=== PATIENT | male | born 1950 | race Hispanic/Latino ===

== ENCOUNTER 2024-11-07 20:45 | Emergency (ER) | payer MEDICARE ==
[2024-11-07] MEDS ORDERED: NA CHLORIDE 0.9% 1,000 ML ONE (21:58)
[2024-11-07 22:15] LABS: Absolute Lymphocytes (CBC) 1.1 K/uL (0.7-4.9); Hematocrit 41.0 % (39.6-49.0); Hemoglobin 14.0 g/dL (13.6-17.9); MCH 33.2 pg (27.0-35.0); MCHC 34.2 g/dL (32.0-36.0); MCV 97.2 fL (80-100); MPV 10.2 fL (7.6-11.3); Nucleated RBC Absolute Count 0.0 (0-0); Nucleated Red Blood Cells % 0.1 % (0-0); RBC Red Blood Cell Count 4.21 M/uL (4.33-5.43); White Blood Count 4.40 thou/uL (4.3-10.9)
--- NOTE | 2024-11-07 22:27 | RAD REPORT ---
EXAMINATION: ONE VIEW CHEST XR CLINICAL INDICATION: Male, 74 years old.,COUGH TECHNIQUE: Frontal chest projection is submitted. Examination is limited by patient positioning and t echnique. COMPARISON: No prior exam. FINDINGS: The lungs are well inflated and clear. No pneumothorax or sizable effusion. The heart is normal in s ize. Mediastinal contours are unremarkable. IMPRESSION: No acute intrathoracic abnormalities.
[2024-11-07 22:28] LABS: ALT/SGPT 102.0 U/L (16-61); AST/SGOT 50.0 U/L (15-37); Albumin 4.0 g/dL (3.4-5.0); Albumin/Globulin Ratio 1.1 (1.1-1.8); Alkaline Phosphatase 114.0 U/L (45-117); Anion Gap 10.1 mEq/L (5.0-15.0); BUN Blood Urea Nitrogen 16.0 mg/dL (7-18); Bilirubin Indirect, Calculated 0.4 mg/dL (0.2-0.8); Globulin 3.6 g/dL (2.3-3.5); Lipase 107.0 U/L (13-75); Potassium 4.1 mEq/L (3.5-5.1)
[2024-11-07 22:29] LABS: Glucose Level 557.0 mg/dL (74-106); Magnesium 2.4 mg/dL (1.6-2.4)
[2024-11-07] MEDS ORDERED: INSULIN REGULAR (HUMAN) 100 UNIT/ML ONE (23:46)
[2024-11-07 23:55] LABS: Urine Microscopic Reflex YN NO UMIC
--- NOTE | 2024-11-08 00:48 | ER ---
Nurse's Notes [facility] Name: Grant Costello Age: 74 yrs Sex: Male : 1950 Arrival Date: 11/07/2024 Time: 20:45 Bed 6 Private MD: Diagnosis: Hyperglycemia, unspecified Presentation: 11/07 21:16 Chief complaint: Patient states: BGS 585 PRIOR TO ARRIVAL TO ER. REPORTS INCREASE IN dd2 THIRST AND URINARY FREQUENCY FOR A COUPLE WEEKS. Coronavirus screen: At this time, the client does not indicate any symptoms associated with coronavirus-19. Ebola Screen: No symptoms or risks identified at this time. Initial Sepsis Screen: Does the patient meet any 2 criteria? No. Patient's initial sepsis screen is negative. Does the patient have a suspected source of infection? No. Patient's initial sepsis screen is negative. Risk Assessment: Do you want to hurt yourself or someone else? Patient reports no desire to harm self or others. Onset of symptoms is unknown. 21:16 Method Of Arrival: Ambulatory dd2 21:16 Acuity: MAXX 3 dd2 Triage Assessment: 21:19 General: Appears in no apparent distress. Behavior is appropriate for age, agitated. dd2 Pain: Denies pain. Historical: - Allergies: 21:19 No Known Allergies; dd2 - PMHx: 21:19 Diabetes mellitus; dd2 - PSHx: 21:19 None; dd2 - Social history:: Smoking status: Patient denies any tobacco usage or history of. Screenin:[address] [facility] ED Fall Risk Assessment (Adult) History of falling in the last 3 months, jb4 including since admission No falls in past 3 months (0 pts) Confusion or Disorientation No (0 pts) Intoxicated or Sedated Yes (3 pts) Impaired Gait No (0 pts) Mobility Assist Device Used No (0 pt) Altered Elimination No (0 pt) Score/Fall Risk Level 0 - 2 = Low Risk Oriented to surroundings, Maintained a safe environment. Abuse screen: Denies threats or abuse. Nutritional screening: No deficits noted. Tuberculosis screening: No symptoms or risk factors identified. Assessment: 22:20 General: Appears in no apparent distress. comfortable, Behavior is calm, cooperative, jb4 appropriate for age. Pain: Denies pain. Neuro: Level of Consciousness is awake, alert, obeys commands, Oriented to person, place, time, situation. Cardiovascular: Patient's skin is warm and dry. Respiratory: Airway is patent Respiratory effort is even, unlabored, Respiratory pattern is regular, symmetrical. : Reports urinary frequency, since the past few days. Derm: Skin is intact, Skin is pink, warm \T\ dry. Musculoskeletal: Circulation, motion, and sensation intact. Range of motion: intact in all extremities. 23:30 Reassessment: Patient appears in no apparent distress at this time. Patient and/or jb4 family updated on plan of care and expected duration. Pain level reassessed. Patient is alert, oriented x 3, equal unlabored respirations, skin warm/dry/pink. 11/08 00:30 Reassessment: Patient appears in no apparent distress at this time. Patient and/or jb4 family updated on plan of care and expected duration. Pain level reassessed. Patient is alert, oriented x 3, equal unlabored respirations, skin warm/dry/pink. 01:56 Reassessment: Patient appears in no apparent distress at this time. Patient and/or jb4 family updated on plan of care and expected duration. Pain level reassessed. Patient is alert, oriented x 3, equal unlabored respirations, skin warm/dry/pink. Vital Signs: 11/07 21:16 BP 150 / 98; Pulse 68; Resp 16; Temp 97.5; Pulse Ox 97% ; Pain 0/10; dd2 22:21 BP 132 / 65; Pulse 63; Resp 19; Pulse Ox 96% ; jb4 11/08 00:13 BP 136 / 67; Pulse 63; Resp 16; Pulse Ox 93% on R/A; jb4 01:30 BP 143 / 72; Pulse 65; Resp 16; Pulse Ox 95% on R/A; jb4 11/07 21:16 Pain Scale: Adult dd2 ED Course: 11/07 20:48 Patient arrived in ED. mr 21:16 Nikki Craven FNP-C is PHCP. kb 21:16 Rafael Coleman DO is Attending Physician. kb 21:19 Triage completed. dd2 21:19 Arm band placed on right wrist. dd2 21:41 Chest Single View XRAY In Process Unspecified. EDMS 21:52 Isael Blair, ESTUARDO is Primary Nurse. jb4 21:56 EKG done, by nanotechnology technician. reviewed by Nikki LATHAM. ts3 21:56 Initial lab(s) drawn, by dock or pier laborer, sent to lab. Inserted saline lock: 20 gauge in left ts3 antecubital area, using aseptic technique. Blood collected. Flushed with 10 mL NS. 22:20 Patient has correct armband on for positive identification. Bed in low position. Call jb4 light in reach. Side rails up X 1. Provided Education on: plan of care. 22:20 No provider procedures requiring assistance completed. jb4 11/08 01:30 IV discontinued, intact, bleeding controlled, No redness/swelling at site. Pressure jb4 dressing applied. Administered Medications: 11/07 22:00 Drug: NS 0.9% IV 1000 ml IV at 1000 ml once; to be given as a bolus over 60 minutes jb4 Route: IV; Rate: 1000 ml; Site: left antecubital; 23:49 Drug: Insulin Regular Human IVP 10 units IVP once {Co-Signature: [email or web address] (Isael Blair br2 RN).} Route: IVP; Site: left antecubital; 11/08 00:46 Follow up: Response: No adverse reaction; Marked relief of symptoms; Blood sugar is jb4 lowered Medication: 11/07 22:20 VIS not applicable for this client. jb4 Outcome: 11/08 00:47 Discharge ordered by . fabricio 01:30 Discharged to home ambulatory, jb4 01:30 Condition: stable 01:30 Discharge instructions given to patient, Instructed on discharge instructions, follow up and referral plans. Demonstrated understanding of instructions, follow-up care, 01:57 Patient left the ED. jb4 Signatures: Dispatcher [employer] EDMS Nikki Craven, YEISON SENIOR EDITOR-Cksukh Marilynn Angel, Reg Reg mr Isael Blair, RN RN jb4 Sandra Bates RN RN br2 ANNA MONTGOMERY RN RN dd2 Jessika Clark ts3 Isael Blair RN jb4 Corrections: (The following items were deleted from the chart) 00:13 11/07 23:30 BP 136 / 67; Pulse 63bpm; Resp 16bpm; Pulse Ox 93% RA; jb4 jb4
--- NOTE | 2024-11-08 00:48 | EDPHYS ---
Physician Documentation [facility] Name: Grant Costello Age: 74 yrs Sex: Male : 1950 Arrival Date: 11/07/2024 Time: 20:45 Bed 6 Private MD: ED Physician Rafael Coleman HPI: 11/07 21:18 This 74 yrs old Male presents to ER via Unassigned with complaints of High kb Blood Sugar. 21:18 Patient is a 74-year-old male who presents for a blood sugar of 585 just prior to kb arrival. Reports increased thirst and urinary frequency for the past couple of weeks. Denies vomiting, diarrhea. Reports chronic cough.. Historical: - Allergies: 21:19 No Known Allergies; dd2 - PMHx: 21:19 Diabetes mellitus; dd2 - PSHx: 21:19 None; dd2 - Social history:: Smoking status: Patient denies any tobacco usage or history of. ROS: 21:18 Constitutional: As per HPI kb Exam: 21:18 Constitutional: This is a well developed, well nourished patient who is awake, alert, kb and in no acute distress. Head/Face: Normocephalic, atraumatic. ENT: Moist Mucous membranes Cardiovascular: Regular rate Respiratory: Respirations even and unlabored. No increased work of breathing. Talking in full sentences Abdomen/GI: Soft, non-tender. No distention Skin: Warm, dry with normal turgor. Normal color. MS/ Extremity: Pulses equal, no cyanosis. Neurovascular intact. Full, normal range of motion. Neuro: Awake and alert, GCS 15, oriented to person, place, time, and situation. 23:50 ECG was reviewed by the Attending Physician. kb Vital Signs: 21:16 BP 150 / 98; Pulse 68; Resp 16; Temp 97.5; Pulse Ox 97% ; Pain 0/10; dd2 22:21 BP 132 / 65; Pulse 63; Resp 19; Pulse Ox 96% ; jb4 11/08 00:13 BP 136 / 67; Pulse 63; Resp 16; Pulse Ox 93% on R/A; jb4 01:30 BP 143 / 72; Pulse 65; Resp 16; Pulse Ox 95% on R/A; jb4 11/07 21:16 Pain Scale: Adult dd2 MDM: 11/07 21:16 Medical Screening Exam initiated kb 23:33 Data reviewed: vital signs, nurses notes. kb 11/08 00:15 Differential diagnosis: DKA, hyperglycemia, UTI. Historians other than the Patient: fabricio Spouse/Significant Other: . Counseling: I had a detailed discussion with the patient and/or guardian regarding the historical points, exam findings, and any diagnostic results supporting the discharge/admit diagnosis, lab results, the need for outpatient follow up, a family practitioner, to return to the emergency department if symptoms worsen or persist or if there are any questions or concerns that arise at home. ED course: Patient and educated on results and need for follow-up with PCP for management of diabetes. Verbal understanding received.. 00:46 Consideration of Admission/Observation Escalation of care including kb admission/observation considered. admission considered for hyperglycemia, but BGL improved after treatment, no DKA. and pt in agreement with outpatient follow up. 11/07 21:17 Order name: BETA HYDROXYBUTYRATE; Complete Time: 22:54 kb 11/07 21:17 Order name: Basic Metabolic Panel; Complete Time: 22:54 kb 11/07 21:17 Order name: CBC with Diff; Complete Time: 22:20 kb 11/07 21:17 Order name: Hepatic Function; Complete Time: 22:54 kb 11/07 21:17 Order name: Lipase; Complete Time: 22:54 kb 11/07 21:17 Order name: Magnesium; Complete Time: 22:54 kb 11/07 21:17 Order name: Phosphorus; Complete Time: 22:54 kb 11/07 21:17 Order name: UA Rfx Jim Cult if indicated; Complete Time: 23:56 kb 11/07 23:52 Order name: Glucose, Ancillary Testing; Complete Time: 23:56 EDMS 11/08 00:58 Order name: Glucose, Ancillary Testing; Complete Time: 01:02 EDMS 11/07 21:17 Order name: Chest Single View XRAY; Complete Time: 22:54 kb 11/07 21:17 Order name: Cardiac monitoring; Complete Time: 21:56 kb 11/07 21:17 Order name: EKG - Nurse/Tech; Complete Time: 21:56 kb 11/07 21:17 Order name: IV Saline Lock; Complete Time: 21:56 kb 11/07 21:17 Order name: NPO; Complete Time: 21:52 kb 11/07 21:17 Order name: O2 Per Protocol; Complete Time: 21:52 kb 11/07 21:17 Order name: O2 Sat Monitoring; Complete Time: 21:52 kb 11/08 00:14 Order name: Blood Glucose Level; Complete Time: 00:46 kb EC/01 23:50 Rate is 64 beats/min. Rhythm is regular. QRS [place] is Normal. [place] interval is normal at kb 186 msec. QRS interval is normal at 94 msec. QT interval is normal at 389 msec. Administered Medications: 22:00 Drug: NS 0.9% IV 1000 ml IV at 1000 ml once; to be given as a bolus over 60 minutes jb4 Route: IV; Rate: 1000 ml; Site: left antecubital; 23:49 Drug: Insulin Regular Human IVP 10 units IVP once {Co-Signature: [email or web address] (Isael Blair2 RN).} Route: IVP; Site: left antecubital; 11/08 00:46 Follow up: Response: No adverse reaction; Marked relief of symptoms; Blood sugar is jb4 lowered Disposition: 07:22 Co-signature as Attending Physician, Rafael Coleman DO I reviewed the patient's care tt7 provided by the Advanced Practice Provider and agree with the diagnosis and treatment plan. Disposition Summary: 11/08/24 00:47 Discharge Ordered Notes: Location: Home kb Condition: Stable kb Diagnosis - Hyperglycemia, unspecified kb Followup: kb - With: Emergency Department - When: As needed - Reason: Worsening of condition Followup: kb - With: Private Physician - When: 2 - 3 days - Reason: Recheck today's complaints, Continuance of care, Re-evaluation by your physician Discharge Instructions: - Discharge Summary Sheet kb - Hyperglycemia kb Forms: - Medication Reconciliation Form kb - Antibiotic Education kb - Prescription Opioid Use kb - Patient Portal Instructions kb - Leadership Thank You Letter kb Signatures: Dispatcher [employer] Nikki Reardon FNP-C SENIOR TALENT ACQUISITION SPECIALIST-Isael Crandall, RN RN jb4 Sandra Bates RN RN br2 ANNA MONTGOMERY RN RN [email or web address] Rafael Coleman DO DO tt7 Isael Blair RN jb4 Corrections: (The following items were deleted from the chart) 11/07 21:18 21:18 BETA HYDROXYBUTYRATE+C.LAB.BRZ ordered. EDMS EDMS 21:18 21:18 BASIC METABOLIC PANEL+C.LAB.BRZ ordered. EDMS EDMS 21:18 21:18 CBC+H.LAB.BRZ ordered. EDMS EDMS 21:18 21:18 HEPATIC FUNCTION+C.LAB.BRZ ordered. EDMS EDMS 21:18 21:18 LIPASE+C.LAB.BRZ ordered. EDMS EDMS 21:18 21:18 MAGNESIUM+C.LAB.BRZ ordered. EDMS EDMS 21:18 21:18 PHOSPHORUS+C.LAB.BRZ ordered. EDMS EDMS 21:18 21:18 UA Rfx Jim Cult if indicated+U.LAB.BRZ ordered. EDMS EDMS 21:18 21:18 Chest Single View+RAD.RAD.BRZ ordered. EDMS EDMS
[2024-11-08 02:07] VITALS: TEMP 97.5
[2024-11-08 02:13] VITALS: BP 143/72; O2SAT 95
== END 2024-11-08 01:57 | disposition home or self-care (01) ==
LOC: ER 20:45
DX: E11.65 Type 2 diabetes mellitus with hyperglycemia (principal)
CPT/HCPCS: 93005; 85025; 80048; 36415; 83735; 84100; 82947 ×2; 80076; 81003; 83690; 82010; 71045; 96374; 99284; J1815; J7030